=== PATIENT | female | born 1995 | race American Indian/Alaskan Native ===

== ENCOUNTER 2017-01-03 02:17 | Emergency (ER) | payer SELFPAY ==
[2017-01-03 02:37] VITALS: RESP 20
--- NOTE | 2017-01-03 02:52 | C.PDOC ---
History Of Present Illness A 21 year old female presents to the ER c/o mechanically falling of a overboard and hitting her head on the pavement last night. Patient notes having a laceration on the left side of her scalp. Patient reported LOC and now notes having a headache. Patient denies dizziness, vomiting, weakness or numbness of the extremities, fever, chills, or any other complaints. Chief Complaint (Nursing): Abnormal Skin Integrity History Per: Patient History/Exam Limitations: no limitations Onset/Duration Of Symptoms: Days Current Symptoms Are (Timing): Still Present Location Of Injury: Left: Head (Left side of scalp) Severity: Mild Additional History Per: Patient Past Medical History Reviewed: Historical Data, Nursing Documentation, Vital Signs Vital Signs: Last Vital Signs Temp 98.3 F 01/03/17 03:50 Pulse 60 01/03/17 03:50 Resp 20 01/03/17 03:50 BP 105/66 01/03/17 03:50 Pulse Ox 98 01/03/17 04:00 - [facility] Procedures APPLICATION OF SPLINT (08/27/13) Family History: States: Unknown Family Hx - Social History Hx Alcohol Use: No Hx Substance Use: Yes - Immunization History Hx Tetanus Toxoid Vaccination: No Hx Influenza Vaccination: No Hx Pneumococcal Vaccination: No Review Of Systems Except As Marked, All Systems Reviewed And Found Negative. Constitutional: Negative for: Fever, Chills Gastrointestinal: Negative for: Vomiting Skin: Positive for: Other (Laceration to the left scalp) Neurological: Positive for: Headache, Other (LOC). Negative for: Weakness ( extremities), Numbness (extremities), Dizziness Physical Exam - Physical Exam Appears: Non-toxic, No Acute Distress Skin: Warm, Dry Head: Abrasion (Small abrasion to the left parietal scalp area.), No Other (No hematoma. Active bleeding) Eye(s): bilateral: Normal Inspection, PERRL, EOMI Neck: No Midline Cervical Tenderness, Supple Extremity: Normal ROM Extremity: Bilateral: Atraumatic Neurological/Psych: Oriented x3, Normal Speech, Normal Cognition Gait: Steady ED Course And Treatment O2 Sat by Pulse Oximetry: 98 (Room air) Pulse Ox Interpretation: Normal - CT Scan/US CT Head w/o IV contrast Other Rad Studies (CT/US): Interpreted By Me, Read By Radiologist CT/US Interpretation: EXAM: CT Head Without Intravenous Contrast. CLINICAL HISTORY: 21 years old, female; Pain; Headache and other: Fall; Additional info: Head. trauma, loc, headache. TECHNIQUE: Axial computed tomography images of the head/brain without intravenous contrast. This CT exam was performed using one or more of the following dose reduction techniques: automated exposure control, adjustment of the mA and/or kV according to patient size, and/or use of. iterative reconstruction technique. COMPARISON: No relevant prior studies available. FINDINGS: Brain: Unremarkable. No hemorrhage. No significant white matter disease. No edema. Ventricles: Unremarkable. No ventriculomegaly. Bones /joints: Unremarkable. No acute fracture. Soft tissues: Unremarkable. Sinuses : Unremarkable as visualized. No acute sinusitis. Mastoid air cells: Unremarkable as visualized. No mastoid effusion. IMPRESSION: Normal head/ brain CT Medical Decision Making Medical Decision Making: Plans: -CT Head -Tylenol -Reassess and disposition Pt remains stable in ED, VSS, sleeping comfortably. I explained to the pt the results of the head CT and pt advised to return if vomiting, lethargy, severe headache, weakness or worse Disposition - Disposition Disposition: HOME/ ROUTINE Disposition Time: 04:05 Condition: GOOD Additional Instructions: Apply ICE and bacitracin to affected area TYlenol or advil for pain Return to ER if vomiting, severe headache,,dizziness or worse Instructions: Head Injury (ED), Abrasion (ED) - Clinical Impression Clinical Impression: Head injury, Scalp abrasion - Scribe Statement The provider has reviewed the documentation as recorded by the Scribe Nory thornton All medical record entries made by the Scribe were at my direction and personally dictated by me. I have reviewed the chart and agree that the record accurately reflects my personal performance of the history, physical exam, medical decision making, and the department course for this patient. I have also personally directed, reviewed, and agree with the discharge instructions and disposition.
[2017-01-03 03:52] VITALS: BP 105/66; PULSE 60; TEMP 98.3; O2SAT 98
--- NOTE | 2017-01-03 08:22 | CT ---
PROCEDURE: CT HEAD WITHOUT CONTRAST. HISTORY: head trauma, LOC, headache COMPARISON: None available. TECHNIQUE: Axial computed tomography images were obtained through the head/brain without intravenous contrast. Radiation dose: Total exam DLP = 917 mGy-cm. This CT exam was performed using one or more of the following dose reduction techniques: Automated exposure control, adjustment of the mA and/or kV according to patient size, and/or use of iterative reconstruction technique. FINDINGS: HEMORRHAGE: No intracranial hemorrhage. BRAIN: No mass effect or edema. No atrophy or chronic microvascular ischemic changes. VENTRICLES: Unremarkable. No hydrocephalus. CALVARIUM: Unremarkable. PARANASAL SINUSES: Unremarkable as visualized. No significant inflammatory changes. MASTOID AIR CELLS: Unremarkable as visualized. No inflammatory changes. OTHER FINDINGS: None. IMPRESSION: No acute intracranial abnormality. If focal neurologic deficit persists, consider MRI. These findings were preliminarily reported at 3:30 a.m. on 01/03/[address] Adrian Jaime from [facility].
== END 2017-01-03 03:51 | disposition home or self-care (01) ==
LOC: C.ER 02:17
DX: S00.01XA Abrasion of scalp, initial encounter (principal); W01.0XXA Fall on same level from slipping, tripping and stumbling without subsequent striking against object, initial encounter; Y92.410 Unspecified street and highway as the place of occurrence of the external cause

== ENCOUNTER 2017-03-15 16:04 | Emergency (ER) | payer MEDICAID, OTHER ==
[2017-03-15 16:13] VITALS: BP 124/80; PULSE 101; RESP 20; TEMP 98; O2SAT 100
--- NOTE | 2017-03-15 17:13 | C.PDOC ---
History Of Present Illness 22 y/o female presents to ED for removal of suture at posterior occipital scalp. Patient states she fell 10 days ago and received 5 sutures in area. Patient denies fever, chills, n/v/d, MARTIN, dizziness or any other complaints at this time. Time Seen by Provider: 03/15/17 16:55 Chief Complaint (Nursing): Suture/Staple Removal History Per: Patient History/Exam Limitations: no limitations Onset/Duration Of Symptoms: Days Ago Current Symptoms Are (Timing): Still Present Past Medical History Reviewed: Historical Data, Nursing Documentation, Vital Signs Vital Signs: Last Vital Signs Temp 98.0 F 03/15/17 16:12 Pulse 101 H 03/15/17 16:12 Resp 20 03/15/17 16:12 BP 124/80 03/15/17 16:12 Pulse Ox 100 03/15/17 17:13 - [facility] Procedures APPLICATION OF SPLINT (08/27/13) Family History: States: Unknown Family Hx - Social History Hx Alcohol Use: No Hx Substance Use: Yes - Immunization History Hx Tetanus Toxoid Vaccination: No Hx Influenza Vaccination: No Hx Pneumococcal Vaccination: No Review Of Systems Except As Marked, All Systems Reviewed And Found Negative. Constitutional: Negative for: Fever, Chills Gastrointestinal: Negative for: Nausea, Vomiting, Diarrhea Skin: Negative for: Rash Neurological: Negative for: Headache Physical Exam - Physical Exam Appears: Non-toxic, No Acute Distress Skin: Normal Color, Warm Head: Other (Well healing incision to scalp) Oral Mucosa: Moist Extremity: Normal ROM, Capillary Refill (<2 seconds) Neurological/Psych: Oriented x3, Normal Speech, Normal Cognition, Normal Motor, Normal Sensation, Normal Reflexes ED Course And Treatment O2 Sat by Pulse Oximetry: 100 (RA) Pulse Ox Interpretation: Normal Medical Decision Making Medical Decision Making: Suture removal procedure done with no problem Patient was discharged home Disposition Counseled Patient/Family Regarding: Diagnosis - Disposition Disposition: HOME/ ROUTINE Disposition Time: 17:11 Condition: STABLE Additional Instructions: You can wash your hair gently. If the area bleeds a bit, just put pressure for 10 minutes. After one week, you can use vitamin D or bacitracin ointment on the site to promote healing. Forms: General Discharge Instructions - Clinical Impression Clinical Impression: Removal of suture - Scribe Statement The provider has reviewed the documentation as recorded by the Scribe Dante Jesus All medical record entries made by the Lupeibrajni were at my direction and personally dictated by me. I have reviewed the chart and agree that the record accurately reflects my personal performance of the history, physical exam, medical decision making, and the department course for this patient. I have also personally directed, reviewed, and agree with the discharge instructions and disposition.
== END 2017-03-15 17:16 | disposition home or self-care (01) ==
LOC: C.ER 16:04
DX: Z48.02 Encounter for removal of sutures (principal)